=== PATIENT | female | born 1985 | race Caucasian/White ===

== ENCOUNTER 2019-05-13 04:49 | Emergency (ER) | payer OTHER, SELFPAY ==
--- OUTSIDE RECORDS SUMMARY | 2019-05-13 04:51 | XMS REPORT ---
:1985 [facility] Address [address] [place] [address] Dr. Decker. [address] [place] [id number] Care Team Providers Name Role Phone Unavailable Unavailable Unavailable Problems This patient has no known problems. Allergies, Adverse Reactions, Alerts This patient has no known allergies or adverse reactions. Medications This patient has no known medications.
--- NOTE | 2019-05-13 05:31 | EDPHYS ---
Physician Documentation [facility] Name: Xiomara Robles Age: 33 yrs Sex: Female : 1985 Arrival Date: 05/13/2019 Time: 04:52 Bed 6 Private MD: ED Physician Matthew Clements HPI: 05/13 05:24 This 33 yrs old Female presents to ER via Ambulatory with complaints of High pkl Blood Pressure. 05:25 The patient presents with a history of irregular heart beat. Onset: The pkl symptoms/episode began/occurred 1 week(s) ago, and became worse just prior to arrival. 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 - Social history:: Smoking status: Patient/guardian denies using tobacco. - Ebola Screening: : No symptoms or risks identified at this time. ROS: 05:25 Eyes: Negative for injury, pain, redness, and discharge, ENT: Negative for injury, pkl pain, and discharge, Neck: Negative for injury, pain, and swelling. 05:25 Cardiovascular: Positive for palpitations. 05:25 Respiratory: Negative for cough, shortness of breath. 05:25 Abdomen/GI: Negative for abdominal pain, nausea, vomiting, and diarrhea. 05:25 Back: Negative for acute changes. 05:25 : Negative for urinary symptoms. 05:25 MS/extremity: Negative for acute changes. 05:25 Skin: Negative for rash. 05:25 Neuro: Negative for altered mental status. Exam: 05:25 Head/Face: Normocephalic, atraumatic. Eyes: Pupils equal round and reactive to light, pkl extra-ocular motions intact. Lids and lashes normal. Conjunctiva and sclera are non-icteric and not injected. Cornea within normal limits. Periorbital areas with no swelling, redness, or edema. ENT: Nares patent. No nasal discharge, no septal abnormalities noted. Tympanic membranes are normal and external auditory canals are clear. Oropharynx with no redness, swelling, or masses, exudates, or evidence of obstruction, uvula midline. Mucous membranes moist. Neck: Trachea midline, no thyromegaly or masses palpated, and no cervical lymphadenopathy. Supple, full range of motion without nuchal rigidity, or vertebral point tenderness. No Meningismus. Chest/axilla: Normal chest wall appearance and motion. Nontender with no deformity. No lesions are appreciated. 05:25 Cardiovascular: Rate: normal, Rhythm: regular. 05:25 ECG was reviewed by the Attending Physician. 05:25 Respiratory: the patient does not display signs of respiratory distress, Respirations: normal, Breath sounds: are clear throughout. 05:25 Abdomen/GI: Bowel sounds: normal, Palpation: abdomen is soft and non-tender, in all quadrants. 05:25 Back: Exam negative for acute changes. 05:25 : Exam negative for acute changes. 05:25 Musculoskeletal/extremity: Exam is negative for acute changes. 05:25 Skin: Exam negative for rash. 05:25 Neuro: Orientation: is normal, Mentation: is normal, Cranial nerves: grossly normal, Motor: is normal. Vital Signs: 05:10 BP 139 / 87; Pulse 85; Resp 16 S; Temp 98.2(O); Pulse Ox 98% on R/A; Weight 95.25 kg bb (R); Height 5 ft. 2 in. (157.48 cm) (R); Pain 0/10; 05:34 BP 120 / 78; Pulse 79; Resp 17; Pulse Ox 99% ; rr5 05:10 Body Mass Index 38.41 (95.25 kg, 157.48 cm) bb MDM: 05:01 Patient medically screened. pkl 05:25 Data reviewed: vital signs, nurses notes, EKG. pkl 05/13 05:33 Order name: ECG strip; Complete Time: 05:33 rr5 Administered Medications: No medications were administered Disposition: 05/13/19 05:29 Discharged to Home. Impression: Palpitations. - Condition is Stable. - Prescriptions for Carvedilol 6.25 mg Oral Tablet - take 1 tablet by ORAL route 2 times per day with food; 60 tablet. - Medication Reconciliation Form, Thank You Letter, Antibiotic Education, Prescription Opioid Use form. - Follow up: Private Physician; When: 2 - 3 days; Reason: Re-evaluation by your physician. - Problem is new. - Symptoms have improved. Signatures: Matthew Clements MD MD pkl Genie Fernandez, RN RN Paul Randhawa RN RN rr5 Corrections: (The following items were deleted from the chart) 05:42 05:29 05/13/2019 05:29 Discharged to Home. Impression: Palpitations. Condition is rr5 Stable. Forms are Medication Reconciliation Form, Thank You Letter, Antibiotic Education, Prescription Opioid Use. Follow up: Private Physician; When: 2 - 3 days; Reason: Re-evaluation by your physician. Problem is new. Symptoms have improved. pkl
--- NOTE | 2019-05-13 05:31 | ER ---
Nurse's Notes [facility] Name: Xiomara Robles Age: 33 yrs Sex: Female : 1985 Arrival Date: 05/13/2019 Time: 04:52 Bed 6 Private MD: Diagnosis: Palpitations Presentation: 05/13 05:06 Presenting complaint: Patient states: she has been having several episodes of her heart bb beating irregularly during the week but it has been irregular since approx midnight and doesn't seem to be going away also her blood pressure was high at home 125/94. Transition of care: patient was not received from another setting of care. Onset of symptoms was May 13, 2019. Risk Assessment: Do you want to hurt yourself or someone else? Patient reports no desire to harm self or others. Initial Sepsis Screen: Does the patient meet any 2 criteria? No. Patient's initial sepsis screen is negative. Does the patient have a suspected source of infection? No. Patient's initial sepsis screen is negative. Care prior to arrival: None. 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 - Social history:: Smoking status: Patient/guardian denies using tobacco. - Ebola Screening: : No symptoms or risks identified at this time. Screenin:11 Abuse screen: Denies threats or abuse. Denies injuries from another. Nutritional rr5 screening: No deficits noted. Tuberculosis screening: No symptoms or risk factors identified. Fall Risk None identified. Total Frank Fall Scale indicates No Risk (0-24 pts). Assessment: 05:10 General: Appears in no apparent distress. comfortable, Behavior is calm, cooperative, rr5 appropriate for age. 05:10 Pain: Denies pain. Neuro: Level of Consciousness is awake, alert, obeys commands, rr5 Oriented to person, place, time, situation, Appropriate for age. Cardiovascular: Reports irregular heart beat Capillary refill < 3 seconds Patient's skin is warm and dry. Respiratory: Airway is patent Respiratory effort is even, unlabored, Respiratory pattern is regular, symmetrical. GI: No signs and/or symptoms were reported involving the gastrointestinal system. : No signs and/or symptoms were reported regarding the genitourinary system. EENT: No signs and/or symptoms were reported regarding the EENT system. Derm: Skin is intact, is healthy with good turgor, Skin temperature is warm. Musculoskeletal: Circulation, motion, and sensation intact. Capillary refill < 3 seconds. 05:33 Reassessment: Patient appears in no apparent distress at this time. Patient is alert, rr5 oriented x 3, equal unlabored respirations, skin warm/dry/pink. discharge instruction given and explained without complaints made,verbalized understading. Vital Signs: 05:10 BP 139 / 87; Pulse 85; Resp 16 S; Temp 98.2(O); Pulse Ox 98% on R/A; Weight 95.25 kg bb (R); Height 5 ft. 2 in. (157.48 cm) (R); Pain 0/10; 05:34 BP 120 / 78; Pulse 79; Resp 17; Pulse Ox 99% ; rr5 05:10 Body Mass Index 38.41 (95.25 kg, 157.48 cm) bb ED Course: 04:52 Patient arrived in ED. cl3 05:01 Matthew Clements MD is Attending Physician. pkl 05:05 Paul Emery, AYESHA is Primary Nurse. rr5 05:08 Triage completed. bb 05:10 Arm band placed on Patient placed in an exam room, on a stretcher, on monitoring coordinator, bb on pulse oximetry. EKG completed in triage. Results shown to MD. 05:10 Patient has correct armband on for positive identification. Placed in gown. Bed in low rr5 position. Call light in reach. 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 Pulse ox on. NIBP on. 05:15 EKG done, by ED staff, reviewed by Matthew Clements MD. rr5 05:34 No provider procedures requiring assistance completed. Patient did not have IV access rr5 during this emergency room visit. Administered Medications: No medications were administered Outcome: 05:29 Discharge ordered by . pkl 05:34 Discharged to home ambulatory, with family. rr5 05:34 Condition: stable 05:34 Discharge instructions given to patient, Instructed on discharge instructions, follow up and referral plans. medication usage, Demonstrated understanding of instructions, follow-up care, medications, Prescriptions given X 1. 05:42 Patient left the ED. rr5 Signatures: Matthew Clements MD MD pkGenie Hidalgo RN RN bb Paul Emery RN RN rr5 Wilfrido Fuentes cl3
[2019-05-13 05:48] VITALS: TEMP 98.2
[2019-05-13 05:49] VITALS: BP 120/78; O2SAT 99
--- NOTE | 2019-05-13 14:06 | EKG ---
Test Date: 2019-05-13 Test Time: 05:11:32 Laboratory Secretary: HANG MEASUREMENT RESULTS: Intervals: Rate: 73 TN: 176 QRSD: 76 QT: 376 QTc: 414 Sharon: P: 48 TN: 176 QRS: 65 T: 42 INTERPRETIVE STATEMENTS: Normal sinus rhythm Low voltage QRS Borderline ECG No previous ECG available for comparison Electronically Signed On 05-13-19 14:06:01 PACKER by Reuben Mclaughlin
== END 2019-05-13 05:42 | disposition home or self-care (01) ==
LOC: ER 04:49
DX: R00.2 Palpitations (principal); I10 Essential (primary) hypertension; E03.9 Hypothyroidism, unspecified; E11.9 Type 2 diabetes mellitus without complications
CPT/HCPCS: 93005; 99284

== ENCOUNTER 2024-01-07 09:29 | Emergency (ER) | payer OTHER ==
--- OUTSIDE RECORDS SUMMARY | 2024-01-07 09:37 | XMS REPORT | Continuity of Care Document ---
Author Name Unknown Address [address] [facility]. [address] [place] [address] [facility] thconnect Address [address] [facility] [address] [place] [address] Care Team Providers Care Garnett Room Worker Name Role Phone SOLANGE GALLEGO Primary Care Physician UnavailTasneem Cool Attending Clinician Unavail able MANAS PAREDES Attending Clinician Unavailable MANAS PAREDES Attending Clinician Unavailable Myrna Palomares DO Attending Clinician [phone] Manas Paredes MD Attending Clinician [phone] Payers Payer Name Policy Type Policy Number Effective Date Expirati on Date Source TSHBP 90 DEGREE AND BENEFITS [id number] 2023 00:00:00 [employer]/TSH B 53 [id number] 2023 00:00:00 [facility] Problems Condition Name Condition Details Condition Category Status Onset Date Resolution Date Last Treatment Date Treating Clinician Comments Source Vitamin D deficiency Vitamin D Deficiency Problem Active 12-26 00:00: 00 [facility] Obesity Obesity Problem Active 12-26 00:00: 00 [facility] Fibrocysti c breast changes Fibrocysti c breast disease Problem [facility] Gastro-eso phageal reflux disease without esophagiti s Gastro-eso phageal reflux disease without esophagiti s Problem [facility] [id number] Body mass index [BMI] 40.0-44.9, adult Problem [facility] [id number] Disturbed concentrat ion Problem [facility] [id number] Espinoza' s disease Problem [facility] [id number] Other chronic pain Problem [facility] [id number] Essential hypertensi on Problem [facility] Polycystic ovary syndrome Polycystic ovary syndrome Problem [facility] [id number] Attention deficit hyperactiv ity disorder (ADHD), predominan tly inattentiv e type Problem [facility] [id number] Ankylosing spondyliti s of lumbosacra l region Problem [facility] [id number] Morbid (severe) obesity due to excess calories Problem [facility] Prediabete s Prediabete s Problem [facility] Umbilical hernia Umbilical hernia Problem [facility] Allergies, Adverse Reactions, Alerts Allergy Name Allergy Type Status Severity Reaction(s) Onset Date Inactive Date Treating Clinician Comments Source LATEX DRUG INGREDI Active Rash 10-18 00:00: 00 [facility] Latex Propensi ty to adverse reaction s Active Rash 10-18 00:00: 00 [facility] Latex Allergy to substanc e Active 11-01 00:00: 00 [facility] Medical 0 Drug allergy Active Unknown [facility] Social History Social Habit Start Date Stop Date Quantity Comments Source Sexual orientation U [facility] History of Tobacco Use [facility] Sex assigned at 1985 00:00:00 1985 00:00:00 [facility] Smoking Status Start Date Stop Date Source Tobacco smoking consumption unknown [facility] Never Smoker [facility] Former Smoker 2023-06-13 00:00:00 2023-06-13 00:00:00 [facility] Medications Ordered Medication Name Filled Medication Name Start Date Stop Date Current Medication? Ordering Clinician Indication Dosage Frequency Signature (SIG) Comments Components Source iopamidol (ISOVUE 370-500 mL) injection 95 mL 01-02 15:30: 00 01-02 15:45 :00 No [id number] 95mL 95 mL, Intravenou s, ONCE, 1 dose, On Sun01/03/24 at 1045, Routine [facility] diphenhydrA MINE:lidoca ine 2% viscous:maa lox 1:1:1 ([facility]) oral suspension 15 mL 01-02 12:15: 00 01-02 12:43 :00 No 15mL 15 mL, Oral, ONCE, 1 dose, On Sun01/03/24 at 0715, Routine [facility] morpHINE (4 mg/mL) injection 4 mg 01-02 11:45: 00 01-02 11:36 :00 No 4mg 4 mg, Slow IV Push, ONCE, 1 dose, On Sun01/03/24 at 0645, STAT [facility] ketorolac (TORADOL) injection 30 mg 01-02 11:45: 00 01-02 10:58 :00 No 30mg 30 mg, Slow IV Push, ONCE, 1 dose, On Sun01/03/24 at 0645, Routine [facility] ondansetron (ZOFRAN (PF)) injection 4 mg 01-02 11:00: 00 01-02 10:57 :00 No 4mg 4 mg, Slow IV Push, ONCE, 1 dose, On Sun01/03/24 at 0600, ORI [facility] famotidine (PEPCID (PF)) injection 20 mg 01-02 11:00: 00 01-02 10:58 :00 No 20mg 20 mg, Slow IV Push, ONCE, 1 dose, On Sun01/03/24 at 0600, ORI [facility] Levothyroxi ne Sodium 50 MCG Levothyroxi ne Sodium 50 MCG 0 1-15 00:00: 00 No QD Levothyrox ine Sodium 50 MCG Levothyroxi ne Sodium 50 MCG Levothyroxi ne Sodium 50 MCG 2019-0 1-15 00:00: 00 No QD Levothyrox ine Sodium 50 MCG lisinopril 5 mg tablet 10-18 10:01: 49 Yes 5mg Take 5 mg by mouth daily. [facility] dicyclomine (BENTYL) 20 mg tablet 10-18 00:00: 00 Yes [id number] 20mg Take 1 tablet by mouth 4 (four) times daily as needed for Abdominal pain. [facility] dextroamphe tamine sulfate ER 15 mg capsule,ext ended release TAKE TWO (2) CAPSULE(S) BY MOUTH DAILY IN THE MORNING. dextroamphe tamine sulfate ER 15 mg capsule,ext ended release TAKE TWO (2) CAPSULE(S) BY MOUTH DAILY IN THE MORNING. No dextroamph etamine sulfate ER 15 mg capsule,ex tended release TAKE TWO (2) CAPSULE(S) BY MOUTH DAILY IN THE MORNING. [facility] Medical dextroamphe tamine-amph etamine 20 mg tablet TAKE 1 TABLET BY MOUTH DAILY EVERY EVENING NEEDED dextroamphe tamine-amph etamine 20 mg tablet TAKE 1 TABLET BY MOUTH DAILY EVERY EVENING NEEDED No dextroamph etamine-am phetamine 20 mg tablet TAKE 1 TABLET BY MOUTH DAILY EVERY EVENING NEEDED [facility] dextroamphe tamine-amph etamine ER 30 mg 24hr capsule,ext end release TAKE 1 CAPSULE BY MOUTH ONCE DAILY IN THE MORNING dextroamphe tamine-amph etamine ER 30 mg 24hr capsule,ext end release TAKE 1 CAPSULE BY MOUTH ONCE DAILY IN THE MORNING No dextroamph etamine-am phetamine ER 30 mg 24hr capsule,ex tend release TAKE 1 CAPSULE BY MOUTH ONCE DAILY IN THE MORNING [facility] Medical fluocinonid e 0.05 % topical solution DENISE TOPICALLY AA ON THE SCALP HS PRN . ONE WEEK ON THEN ONE WEEK OFF fluocinonid e 0.05 % topical solution DENISE TOPICALLY AA ON THE SCALP HS PRN . ONE WEEK ON THEN ONE WEEK OFF No fluocinoni de 0.05 % topical solution DENISE TOPICALLY AA ON THE SCALP HS PRN . ONE WEEK ON THEN ONE WEEK OFF [facility] hydroxychlo roquine 200 mg tablet TK 1 T PO BID WF OR MILK hydroxychlo roquine 200 mg tablet TK 1 T PO BID WF OR MILK No hydroxychl oroquine 200 mg tablet TK 1 T PO BID WF OR MILK [facility] ketoconazol e 2 % shampoo U TO WASH EARS Q OTHER TIME YOU SHAMPOO. LEAVE LATHER IN PLACE FOR 5 MINUTES PRIOR TO RINSING ketoconazol e 2 % shampoo U TO WASH EARS Q OTHER TIME YOU SHAMPOO. LEAVE LATHER IN PLACE FOR 5 MINUTES PRIOR TO RINSING No ketoconazo le 2 % shampoo U TO WASH EARS Q OTHER TIME YOU SHAMPOO. LEAVE LATHER IN PLACE FOR 5 MINUTES PRIOR TO RINSING [facility] liothyronin e liothyronin e No liothyroni ne [facility] liothyronin e 5 mcg tablet TAKE ONE (1) TABLET(S) BY MOUTH ONCE A DAY ON AN EMPTY STOMACH. liothyronin e 5 mcg tablet TAKE ONE (1) TABLET(S) BY MOUTH ONCE A DAY ON AN EMPTY STOMACH. No liothyroni ne 5 mcg tablet TAKE ONE (1) TABLET(S) BY MOUTH ONCE A DAY ON AN EMPTY STOMACH. [facility] lisinopril 10 mg tablet TAKE ONE (1) TABLET(S) BY MOUTH ONCE A DAY. lisinopril 10 mg tablet TAKE ONE (1) TABLET(S) BY MOUTH ONCE A DAY. No lisinopril 10 mg tablet TAKE ONE (1) TABLET(S) BY MOUTH ONCE A DAY. [facility] Synthroid 50 mcg tablet TAKE ONE (1) TABLET IN THE MORNING ON AN EMPTY STOMACH, TAKE 2 TABLETS ON SUNDAY AND SUNDAY. Synthroid 50 mcg tablet TAKE ONE (1) TABLET IN THE MORNING ON AN EMPTY STOMACH, TAKE 2 TABLETS ON SUNDAY AND SUNDAY. No Synthroid 50 mcg tablet TAKE ONE (1) TABLET IN THE MORNING ON AN EMPTY STOMACH, TAKE 2 TABLETS ON SUNDAY AND SUNDAY. [facility] metFORMIN HCl ER 500 MG metFORMIN HCl ER 500 MG No 2{table ts} BID metFORMIN HCl ER 500 MG Amphetamine -Dextroamph et ER 30 MG Amphetamine -Dextroamph et ER 30 MG No 1{capsu le_in_t he_morn ing} QD Amphetamin e-Dextroam phet ER 30 MG Adderall XR 30 MG Adderall XR 30 MG No 1{capsu le_in_t he_morn ing} QD Adderall XR 30 MG Synthroid 50 MCG Synthroid 50 MCG No QD Synthroid 50 MCG Mounjaro 7.5 MG/0.5ML Mounjaro 7.5 MG/0.5ML No Mounjaro 7.5 MG/0.5ML Adderall 20 MG Adderall 20 MG No 1{table t} BID Adderall 20 MG Magnesium Magnesium No Magnesium Lisinopril 20 MG Lisinopril 20 MG No 1{table t} QD Lisinopril 20 MG Liothyronin e Sodium 5 MCG Liothyronin e Sodium 5 MCG No Liothyroni ne Sodium 5 MCG metFORMIN HCl ER 500 MG metFORMIN HCl ER 500 MG No 2{table ts} BID metFORMIN HCl ER 500 MG Amphetamine -Dextroamph et ER 30 MG Amphetamine -Dextroamph et ER 30 MG No 1{capsu le_in_t he_morn ing} QD Amphetamin e-Dextroam phet ER 30 MG Adderall XR 30 MG Adderall XR 30 MG No 1{capsu le_in_t he_morn ing} QD Adderall XR 30 MG Synthroid 50 MCG Synthroid 50 MCG No QD Synthroid 50 MCG Mounjaro 7.5 MG/0.5ML Mounjaro 7.5 MG/0.5ML No Mounjaro 7.5 MG/0.5ML Adderall 20 MG Adderall 20 MG No 1{table t} BID Adderall 20 MG Magnesium Magnesium No Magnesium Lisinopril 20 MG Lisinopril 20 MG No 1{table t} QD Lisinopril 20 MG Liothyronin e Sodium 5 MCG Liothyronin e Sodium 5 MCG No Liothyroni ne Sodium 5 MCG clindamycin HCl 300 mg capsule TK 1 C PO BID FOR 2 WKS clindamycin HCl 300 mg capsule TK 1 C PO BID FOR 2 WKS No clindamyci n HCl 300 mg capsule TK 1 C PO BID FOR 2 WKS [facility] Medical dextroamphe tamine sulfate 20 mg tablet TAKE ONE (1) TABLET(S) BY MOUTH DAILY IN THE MORNING. dextroamphe tamine sulfate 20 mg tablet TAKE ONE (1) TABLET(S) BY MOUTH DAILY IN THE MORNING. No dextroamph etamine sulfate 20 mg tablet TAKE ONE (1) TABLET(S) BY MOUTH DAILY IN THE MORNING. [facility] Medical Immunizations Ordered Immunization Name Filled Immunization Name Date Status Comments Source Rho(D)-IG Rho(D)-IG Unknown Completed [facility] Vital Signs Vital Name Observation Time Observation Value Comments Shanna hartley Systolic blood pressure 2024-01-03 17:27:00 109 mm[Hg] [facility] Diastolic blood pressure 2024-01-03 17:27:00 85 mm[Hg] [facility] Heart rate 2024-01-03 17:27:00 53 /min [facility] Body temperature 2024-01-03 17:27:00 37.06 Nighat [facility] Respiratory rate 2024-01-03 17:27:00 16 /min [facility] Oxygen saturation in Arterial blood by Pulse oximetry 2024-01-03 17:27:00 91 /min [facility] Body height 2024-01-03 10:37:00 157.5 cm [facility] Body weight 2024-01-03 10:37:00 89.812 kg [facility] BMI 2024-01-03 10:37:00 36.21 kg/m2 [facility] Body Weight 2023-11-28 00:00:00 202 [lb_av] [facility] BMI (Body Mass Index) 2023-11-28 00:00:00 36.9 kg/m2 [facility] BP Systolic 2023-11-28 00:00:00 124 mm[Hg] [facility] BP Diastolic 2023-11-28 00:00:00 78 mm[Hg] [facility] Height 2023-11-28 00:00:00 62 [in_i] [facility] height 2023-06-04 16:00:00 62 [in_i] Commo n [facility] weight 2023-06-04 16:00:00 219 [lb_av] Comm on [facility] temperature 2023-06-04 16:00:00 98.2 [degF] Com mon [facility] bmi 2023-06-04 16:00:00 40.05 kg/m2 Comm on [facility] oximetry 2023-06-04 16:00:00 100 % Commo n [facility] respiratory rate 2023-06-04 16:00:00 18 /min [facility] blood pressure systolic 2023-06-04 16:00:00 133 mm[Hg] [facility] blood pressure diastolic 2023-06-04 16:00:00 80 mm[Hg] [facility] Procedures Procedure Date / Time Performed Performing Clinician Source TROPONIN I 2024-01-03 15:57:00 Manas Paredes [facility] CT ABDOMEN PELVIS W CONTRAST 2024-01-03 15:29:55 Manas Paredes [facility] CT CHEST PULMONARY ANGIOGRAM 2024-01-03 15:29:55 Manas Paredes [facility] D-DIMER 2024-01-03 14:21:00 Manas Paredes [facility] POCT TEST 2024-01-03 12:41:00 Ashley Palomares ra [facility] EKG-12 LEAD 2024-01-03 12:12:39 [facility] 2024-01-03 11:06:22 Myrna Palomares U [facility] MAGNESIUM 2024-01-03 10:54:00 [facility] TR[facility]IN I 2024-01-03 10:54:00 [facility] COMP. METABOLIC PANEL ([id number]) 2024-01-03 10:54:00 Myrna Palomares [facility] CBC WITH DIFF 2024-01-03 10:54:00 Myrna Palomares U [facility] SCREENING MAMMOGRAPHY BI 2-VIEW BREAST INC CAD 2023-11-28 00:00:00 [facility] Medical Caesarean Section 2017-11-14 00:00:00 [facility] Caesarean Section 2012-01-13 00:00:00 [facility] Dilation and Curettage 2010-10-12 00:00:00 [facility] Medical Oral / Dental Surgery 2004-05-14 00:00:00 [facility] Medical Tonsillectomy 2000-05-14 00:00:00 [facility] Medical Encounters Start Date/Time End Date/Time Encounter Type Admission Type Attending Clinicians Care Facility Care Department Encounter ID Source 2023-06-04 15:59:01 Outpatient Tasneem Landon [facility]LMLC [facility] [id number] [facility] 2024-01-03 05:43:00 2024-01-03 12:35:00 Emergency X MANAS PAREDES JULIO [facility] ERT [id number] [facility] 2024-01-03 05:43:00 2024-01-03 12:35:00 Emergency Myrna Palomares Manas Cordero [facility] AT [facility] [id number] [facility] 2023-11-28 00:00:00 2023-11-28 00:00:00 Kelton Jack MD: [address] [place] [address] , Ph. [facility] [place] Office [id number] [facility] 2023-06-12 00:00:00 2023-06-12 00:00:00 (TEL) STLC ST[facility] [id number] [facility] 2023-06-04 00:00:00 2023-06-04 00:00:00 OFFICE VISIT NEW PT LEVEL [id number] [facility] Results Test Description Test Time Test Comments Results Result Co mments Source [facility] [id number] 15:47:53CT Abdomen and Pelvis with intravenous contrast. CLINICAL HISTORY: Abdominal distention. DOSE: Up-to-date CT equipment and radiation dose reduction techniques wereemployed. CTDIvol: 1.78+5.16+6.78+12.7 ?mGy. DLP: 3.46+6.88+224+667 mGy-cm. TECHNIQUE : Contiguous axial imaging from the level of the lung basesthrough the pubic symphysis were performed after the uncomplicatedadministration of nonionic contrast material. ?Coronal and sagittalreconstructions were obtained. Auto mA and/or iterative reconstruction wereused to reduce radiation dose. FINDINGS: ? Lower lungs: Clear. No pleural effusion or pericardial effusion. Liver, Gallbladder and Spleen: Liver is slightly enlarged, 17.4 cm inlengthwith mild fatty infiltration suspected with focal fatty sparingliver parenchyma, in near the falciform sulcus. Gallbladder appears to bemoderately distended. No gallstones visualized. Spleen is of normal size.Biliary ducts are not dilated. Peritoneum: ?No free air or free fluid. No lymphadenopathy.Pancreas and Adrenals: ?Unremarkable pancreas and adrenal glands. Kidneys and Ureters: ?No visible calculi in the renal collecting systems. No hydroureter or hydronephrosis. Vessels: Normal. Retroperitoneum: No abnormal fluid or lymphadenopathy. Bowel: ?Distended stomach due to air and food material. Mild constipation.Diverticulosis of the sigmoid and descending colon without any acutechanges. Normal appendix is visualized. Bladder and Reproductive Organs: ?Prominent ovaries due to multiple cysts,likely physiologic. Heterogeneous enhancement of the uterine myometriumseen without any discrete fibroid confirmed. No gross pathology in theunopacified urinary bladder. Bones: ?Schmorl's nodes in multiple lumbar vertebral endplates.Calcification in L5-S1 and L2-L3 disc. Soft tissues: Small fat-co ntaining umbilical hernia without anycomplications. CONCLUSION: 1. No acute findings in the contrast enhanced CT scan of abdomen andpelvis.2. Mild hepatomegaly.3. Diverticulosis of the sigmoid and descending colon without any acutechanges of diverticulitis. Mild distention of the stomach due to gas andfluid/food material.[facility] CHEST PULMONARY [id number] 15:42:11HISTORY: Rule out P.E. TECHNIQUE: Contrast-enhanced 64-mutidetector CT scan of the chest wascompleted with intravenous injection of ?non ionic contrast medium.Subsequently numerous sagittal, coronal and MIP reformations weregenerated. FINDINGS: No acute pulmonary thromboembolism detected. No pneumothorax or pneumomediastinum. No pleural effusion or pericardialeffusion. Cardiac size is normal. No significant coronary atherosclerosis.Lungs are free of acute infiltrates or any nodularity. Minimal p eripheralbased congestion seen in the lower lungs. No hiatal hernia is seen but esophagus showed gas in the distal segment.Thyroid gland is incompletely visualized. Chest wall soft tissues appear normal. Prominent Schmorl's nodes are seenin several middle and lower thoracic vertebral endplates. No a cutecompression fracture deformity or any aggressive bone lesions seen. CONCLUSIONS: No acute intrathoracic findings. Specifically, no evidence ofacute pulmonary thromboembolism.[facility]-[id number] 14:59:41* Test Item Value Reference Range Interpretation Comments D-DIMER (test code = 5271695417) 0.55 See_Comment H [Automated message] The system which generated this result transmitted reference range: <0.50 ?g/mL (FEU). The reference range was not used to interpret this result as normal/abnormal. LILIAN (test code = LILIAN) This test may be used in conjunction with a clinical pretest probability (PTP) assessment model to exclude venous thromboembolism (VTE) in patients suspected of deep venous thrombosis (DVT) and pulmonary embolism (PE) A D-Dimer value less than 0.50 ?g/ml (FEU) has a negative predicative value of 96 to 100% (95% CI)and 97 to 100% (95% CI) as an aid in the diagnosis of deep vein thrombosis (DVT) and pulmonary embolism when there is low or moderate pretest probability of PE or DVT. D-Dimer values are expressed in initial fibrinogen equivalent units (FEU)" The assay results should be used with other information, including the clinical context, in forming a diagnosis. Lab Interpretation (test code = 42021-1) [facility] [id number] 14:50:04EXAM: XR CHEST 1 VW COMPARISON: Prior chest radiograph 10/18/2018 HISTORY: chest pain FINDINGS: The lung volumes are normal. No focal opacities. No pleural abnormalitiesare detected. The cardiac silhouette appears normal in size, unchanged. No aggressive osseous lesions.[facility] 2024-01-03 12:41:00* Test Item Value Reference Range Interpretation Comme nts POCT PREG (test code = 1605) Negative On board controls acceptable with C Line (test code = 3574) Yes POCT PREG LOT # (test code = 3575) [id number] POCT PREG TEST DATE ( test code = 3576) 04-21-25 Lab Interpretation (test cod e = 19513-7) Normal [facility] [id number] 12:00:34* Test Item Value Reference Range Interpretation Comme nts TROPONIN I (test code = 5551902863) <=0.034 LILIAN (test code = LILIAN) Reference (Normal) Range (defined by the 99th percentile reference limit): <= 0.034 ng/mL Note: Cardiac troponin begins to rise 3-4 hours after the onset of ischemia. Repeat in 4-6 hours if the sample was drawn within 3-4 hours of the onset of the symptom and found normal. Diagnosis of myocardial injury is made with acute changes in cTn concentrations with at least one serial sample above the 99th percentile upper reference limit (URL), taken together with the patient's clinical presentation. Biotin has been reported to cause a negative bias, interpret results relative to patient's use of biotin. Lab Interpretation (test code = 67834-4) Normal [facility] Center[facility]esium2024-08-22 11:51:12* Test Item Value Reference Range Interpretation Comme nts MAGNESIUM (test code = 1732687431) 2.0 mg/dL 1.7-2.4 Lab Interpretation (test cod e = 37234-7) Normal [facility]ABOLIC PANEL (80335)2024-01-03 11:50:52* Test Item Value Reference Range Interpretation Comme nts NA (test code = 5232711842) 140 mmol/L 135-145 K (test code = 5967860934) 4.0 mmol/L 3.5-5.0 CL (test code = 4246404638) 101 mmol/L 98-108 CO2 TOTAL (test code = 4183430854) 29 mmol/L 23-31 AGAP (test code = 6909149681) 10 2-16 BUN (test code = 9209083478) 11 mg/dL 7-23 GLUCOSE (test code = 0705712941) 109 mg/dL 70-110 CREATININE (test code = 2160-0) 0.68 mg/dL 0.50-1.04 TOTAL BILI (test code = 4800214809) 0.7 mg/dL 0.1-1.1 CALCIUM (test code = 0105957485) 8.8 mg/dL 8.6-10.6 T PROTEIN (test code = 3418359329) 7.9 g/dL 6.3-8.2 ALBUMIN (test code = 8733160379) 4.5 g/dL 3.5-5.0 ALK PHOS (test code = 2275715267) 62 U/L 34-122 ALTv (test code = 1742-6) 29 U/L 5-35 AST(SGOT) (test code = 3604201935) 46 U/L 13-40 H eGFR (test code = 26030-0) 115.9 mL/min/1.73m2 CKD-EPI eGFR (2020). Assuming creatinine has been stable day-to-day for at least three months, the eGFR indicates Category G1 (>= 90 mL/min/1.73 m2) Lab Interpretation (test code = 95631-2) [facility] WITH [id number] 11:30:33* Test Item Value Reference Range Interpretation Comme nts WBC (test code = 6690-2) 7.53 4.30-11.10 RBC (test code = 789-8) 4.75 3.93-5.25 HGB (test code = 718-7) 13.7 g/dL 11.6-15.0 HCT (test code = 4544-3) 40.7 % 35.7-45.2 MCV (test code = 787-2) 85.7 fL 80.6-95.5 MCH (test code = 785-6) 28.8 pg 25.9-32.8 MCHC (test code = 786-4) 33.7 g/dL 31.6-35.1 RDW-SD (test code = 40163-6) 37.5 fL 39.0-49.9 L RDW-CV (test code = 788-0) 12.0 % 12.0-15.5 PLT (test code = 777-3) 339 166-358 MPV (test code = 87364-1) 10.2 fL 9.5-12.9 NRBC/100 WBC (test code = 3537074367) 0.0 0.0-10.0 NRBC x10^3 (test code = 5672338270) See_Comment [Automated messa ge] The system which generated this result transmitted reference range: 10*3/?L. The reference range was not used to interpret this result as normal/abnormal. GRAN MAT (NEUT) % (test code = 770-8) 56.6 % IMM GRAN % (test code = 3134963219) 0.30 % LYMPH % (test code = 736-9) 36.9 % MONO % (test code = 5905-5) 5.2 % EOS % (test code = 713-8) 0.7 % BASO % (test code = 706-2) 0.3 % GRAN MAT x10^3(ANC) (test code = 3434909345) 4.27 10*3/uL 1.88-7.09 IMM GRAN x10^3 (test code = 8038933438) 0.00-0.06 LYMPH x10^3 (test code = 731-0) 2.78 10*3/uL 1.32-3.29 MONO x10^3 (test code = 742-7) 0.39 10*3/uL 0.33-0.92 EOS x10^3 (test code = 711-2) 0.05 10*3/uL 0.03-0.39 BASO x10^3 (test code = 704-7) 0.01-0.07 Lab Interpretation (test code = 59118-3) Abnormal [facility] Notes Date/Time Note Provider Source 2024-01-03 12:34:23 Pt given printed and verbal discharge instructions regarding chest pain, encouraged hydration. Pt verbalized understanding of instructions, pt awake alert oriented, resp reg unlabored, skin w/d, color appropriate for race, moves all ext well, pt encouraged to follow up with pcp. Advised to seek medical attention for new/prolonged/worsening of symptoms. Symptoms addressed. No adverse reaction to meds given in ER noted upon discharge. PIV d'cd, dressing to site, catheter intact. Pt leaving amb with steady gait, in no apparent distress. Left with . Analia Melgar RN [facility] 2024-01-03 06:57:12 Nurse Report Report given to AYESHA Helms. Chief complaint, assessment findings, and orders reviewed. Plan of care discussed with patient and both nurses. Meseret Moe RN [facility] 2024-01-03 05:34:29 Pt arrived ambulatory with c/o chest pain for 1 hour. States she had chest pain a few weeks ago and was told she had elevated liver enzymes and gallstones. Denies any cardiac hx Meseret Moe RN [facility] 2024-01-03 05:32:00 Associated Order(s): EKG-12 Lead ROUTINE ONCE Pre-Procedure Diagnose(s): Chest pain, unspecified type Post-Procedure Diagnose(s): Chest pain, unspecified type [facility] Emergency Department Note Patient Name: Cuate Robles Date of : 1985 38 year old female Treatment Room: MA1/MA1 Primary Care Physician: Solange Gallego Patient Escorted by: Family [5] Mode of Arrival: Personal means [1] EMS Treatment Prior to ED Arrival: [employer] treatment: Aspirin [employer] treatment comments: 325mg ASA Travel and Exposure Screening: Symptoms Does patient have any of these symptoms?: (not recorded) Exposure Screening Has patient had contact with someone with a communicable disease in the last month?: (not recorded) Diseases exposed to:: (not recorded) Is Patient ?: (not recorded) Exposure Date: (not recorded) Chief Complaint: Chief Complaint Patient presents with Chest Pain History of Present Illness: The patient presents from home for evaluation for pain below her left breast that started around 4:00 in the morning. She was asleep and was awoken when the pain started. The pain has been waxing and waning since it started but has not resolved. No radiation of pain to her back, neck or jaw. No shortness of breath. The pain is not associated with exertion or deep breathing. She reports moving her arms does make the pain worse. She took a lisinopril tablet this morning as well as a full aspirin. Lisinopril was her blood pressure dose that she forgot to take yesterday evening. She does have a history of high blood pressure as well as thyroid disease but no diabetes. She does not smoke. Here for evaluation. Past Medical History/Immunizations: Past Medical History: Diagnosis Date HTN (hypertension) Tetanus received in last 5 years: Unknown Childhood immunizations: Up-to-date Allergies: Allergies Allergen Reactions Latex Rash Past Social History: Substance & Sexual Activity No substance use or sexual activity history on file. Past Surgical History: Past Surgical History: Procedure Laterality Date SECTION TONSILLECTOMY Review of Systems: Review of Systems Constitutional: Negative for chills and fever. Respiratory: Negative for cough and shortness of breath. Cardiovascular: Positive for chest pain. Gastrointestinal: Negative for abdominal pain and vomiting. Genitourinary: Negative for dysuria. Musculoskeletal: Negative for arthralgias, neck pain and neck stiffness. Skin: Negative for wound. Neurological: Negative for dizziness. Psychiatric/Behavioral: Negative for agitation. Endocrine: Negative for goiter. Physical Exam: ED Triage Vitals [01/03/24 0537] Weight 89.8 kg (198 lb) Actual or estimated Actual Height 1.575 m (5' 2") BP (!) 137/92 Pulse 60 Resp 18 Temp 37.1 ?C (98.7 ?F) Temp source Oral SpO2 100 % Measured on Room air Physical Exam Vitals and nursing note reviewed. Constitutional: Appearance: Normal appearance. She is obese. HENT: Head: Normocephalic and atraumatic. Cardiovascular: Rate and Rhythm: Normal rate and regular rhythm. Pulses: Normal pulses. Pulmonary: Effort: Pulmonary effort is normal. No respiratory distress. Breath sounds: No stridor. No wheezing or rhonchi. Chest: Chest wall: Tenderness (anterior chest wall tenderness) present. Abdominal: General: There is no distension. Palpations: Abdomen is soft. Tenderness: There is no abdominal tenderness. There is no guarding. Musculoskeletal: General: Normal range of motion. Cervical back: Normal range of motion and neck supple. Skin: General: Skin is warm and dry. Neurological: General: No focal deficit present. Mental Status: She is alert and oriented to person, place, and time. Radiology: XR CHEST 1 VW Preliminary Result EXAM: XR CHEST 1 VW COMPARISON: Prior chest radiograph 10/18/2018 HISTORY: chest pain FINDINGS: The lung volumes are normal. No focal opacities. No pleural abnormalities are detected. The cardiac silhouette appears normal in size, unchanged. No aggressive osseous lesions. IMPRESSION No acute cardiopulmonary process. Preliminary Report Dictated by Resident: Stefano Graves Lab Results: Lab Results CBC WITH DIFF - Abnormal Result Value Ref Range WBC 7.53 4.30 - 11.10 10*3/?L RBC 4.75 3.93 - 5.25 10*6/?L HGB 13.7 11.6 - 15.0 g/dL HCT 40.7 35.7 - 45.2 % MCV 85.7 80.6 - 95.5 fL MCH 28.8 25.9 - 32.8 pg MCHC 33.7 31.6 - 35.1 g/dL RDW-SD 37.5 (*) 39.0 - 49.9 fL RDW-CV 12.0 12.0 - 15.5 % PLT 339 166 - 358 10*3/?L MPV 10.2 9.5 - 12.9 fL NRBC/100 WBC 0.0 0.0 - 10.0 /100 WBCs NRBC x10 3 <0.01 10*3/?L GRAN MAT (NEUT) % 56.6 % IMM GRAN % 0.30 % LYMPH % 36.9 % MONO % 5.2 % EOS % 0.7 % BASO % 0.3 % GRAN MAT x10 3 (ANC) 4.27 1.88 - 7.09 10*3/uL IMM GRAN x10 3 <0.03 0.00 - 0.06 10*3/uL LYMPH x10 3 2.78 1.32 - 3.29 10*3/uL MONO x10 3 0.39 0.33 - 0.92 10*3/uL EOS x10 3 0.05 0.03 - 0.39 10*3/uL BASO x10 3 <0.03 0.01 - 0.07 10*3/uL COMP. METABOLIC PANEL (51526) - Abnormal NA 140 135 - 145 mmol/L K 4.0 3.5 - 5.0 mmol/L CL 101 98 - 108 mmol/L CO2 TOTAL 29 23 - 31 mmol/L AGAP 10 2 - 16 BUN 11 7 - 23 mg/dL GLUCOSE 109 70 - 110 mg/dL CREATININE 0.68 0.50 - 1.04 mg/dL TOTAL BILI 0.7 0.1 - 1.1 mg/dL CALCIUM 8.8 8.6 - 10.6 mg/dL T PROTEIN 7.9 6.3 - 8.2 g/dL ALBUMIN 4.5 3.5 - 5.0 g/dL ALK PHOS 62 34 - 122 U/L ALTv 29 5 - 35 U/L AST(SGOT) 46 (*) 13 - 40 U/L eGFR 115.9 mL/min/1.73m2 TROPONIN I - Normal TROPONIN I <0.012 <=0.034 ng/mL MAGNESIUM - Normal MAGNESIUM 2.0 1.7 - 2.4 mg/dL POCT TEST EKG: If EKG completed, see Procedure Note. Orders and Treatments: Orders Placed This Encounter Procedures XR CHEST 1 VW CBC WITH DIFF COMP. METABOLIC PANEL (69611) TROPONIN I Magnesium POCT TEST Orders Placed This Encounter Medications famotidine (PEPCID (PF)) injection 20 mg ketorolac (TORADOL) injection 30 mg ondansetron (ZOFRAN (PF)) injection 4 mg morpHINE (4 mg/mL) injection 4 mg First Provider Eval: ED Events Date/Time Event User Comments 01/03/24545 Medical Screening Begins MYRNA PALOMARES DO -- 01/03/24545 First Provider Evaluation MYRNA PALOMARES DO -- ED COURSE Diagnosis/Impression as of 01/03/24 0712 Chest pain, unspecified type Procedures: EKG-12 Lead ROUTINE ONCE Date/Time: 01/03/2024 5:54 AM Performed by: Myrna Palomares DO Authorized by: Myrna Palomares DO ECG interpreted by ED Physician in the absence of a behavioral health therapist: yes Interpretation: Interpretation: normal Rate: ECG rate: 56 ECG rate assessment: normal Rhythm: Rhythm: sinus rhythm Ectopy: Ectopy: none QRS: QRS axis: Normal QRS intervals: Normal QRS conduction: normal ST segments: ST segments: Normal T waves: T waves: normal Q waves: Abnormal Q-waves: not present MDM: Medical Decision Making The patient presents from home for evaluation after being awoken for pain below her left breast that started at 4 AM. The pain has been constant since it started but is waxing and waning in intensity. It does not radiate to her back, neck or jaw. No shortness of breath. Exertion and deep breathing have not changed her pain. Movement of her arms does not make the pain feel worse. She took an aspirin tablet this morning as well as her evening lisinopril dose as she forgot it yesterday evening. She does have a history of high blood pressure as well as thyroid disease but no diabetes. She does not smoke. Vital signs are stable in ER. The patient is obese. Her heart is regular rhythm. Her lungs are clear. She has tenderness to her left lower anterior chest wall. Her EKG shows a normal sinus rhythm, no STEMI. The patient is a low risk for ACS and her presentation is atypical for this. Will check laboratory studies including troponin. Will also obtain a chest x-ray and provide the patient with pain medication. Anticipate discharge home later. 0700 - labs are unremarkable. Troponin is pending. CXR shows no acute cardiopulmonary issues. She is signed out to Dr. Paredes pending above and reeval. Final dispo pending. Problems Addressed: Chest pain, unspecified type: acute illness or injury Amount and/or Complexity of Data Reviewed Labs: ordered. Decision-making details documented in ED Course. Radiology: ordered and independent interpretation performed. Decision-making details documented in ED Course. ECG/medicine tests: ordered and independent interpretation performed. Decision-making details documented in ED Course. Risk Prescription drug management. Parenteral controlled substances. Flowsheet Documentation: Scoring Tools: No data recorded Disposition/Condition: ED Disposition None Discharge Medications: Patient's Medications START taking these medications No medications on file CONTINUE taking these medications which have NOT CHANGED DICYCLOMINE (BENTYL) 20 MG TABLET Take 1 tablet by mouth 4 (four) times daily as needed for Abdominal pain. LISINOPRIL 5 MG TABLET Take 5 mg by mouth daily. START taking Modified Medications as Prescribed No medications on file STOP taking these medications No medications on file Follow-up: Electronically signed by: Myrna Palomares DO 01/03/24711 T [facility]
--- NOTE | 2024-01-07 10:38 | ER ---
Nurse's Notes [facility] Name: Xiomara Robles Age: 38 yrs Sex: Female : 1985 Arrival Date: 01/07/2024 Time: 09:29 Bed IW10 Private MD: Diagnosis: Assessment: 01/06 10:06 General: patient called from lobby with no answer. ap3 ED Course: 09:36 Patient arrived in ED. im 09:36 Maxx Aviles PA is PHCP. cp 09:36 Gerry Villalta MD is Attending Physician. cp 09:53 Demarco Faria MD is Attending Physician. sp3 10:06 Patient's name was called from ER lobby. No response. Unable to locate patient. Will jl7 disposition as left without being seen by a provider. 10:30 Patient's name was called from ER lobby. No response. Unable to locate patient. Will jl7 disposition as left without being seen by a provider. 10:36 Patient's name was called from ER lobby. No response. Unable to locate patient. Will jl7 disposition as left without being seen by a provider. Administered Medications: No medications were administered Outcome: 11:29 Patient left the ED. jl7 Signatures: Maxx Aviles PA PA cp Leal, Jahala, RN RN jl7 Olga Parrish RN RN ap3 Demarco Faria MD MD sp3 Love Haile im
--- NOTE | 2024-01-07 10:38 | EDPHYS ---
Physician Documentation [facility] Name: Xiomara Robles Age: 38 yrs Sex: Female : 1985 Arrival Date: 01/07/2024 Time: 09:29 Bed IW10 Private MD: ED Physician MDM: 01/06 09:53 Patient medically screened. sp3 Administered Medications: No medications were administered Disposition Summary: 01/07/24 10:37 Eloped Notes: Disposition: before being seen by provider cp Reason: unknown cp Signatures: Maxx Aviles PA PA cp Patel, Setul, MD MD sp3
== END 2024-01-07 11:29 | disposition left against medical advice (07) ==
LOC: ER 09:29
DX: Z02.9 Encounter for administrative examinations, unspecified (principal)